=== PATIENT | male | born 1985 | race Caucasian/White ===

== ENCOUNTER 2021-10-21 13:16 | Emergency (ER) | payer SELFPAY ==
[~2021-10-21] VITALS: Ht 175.3 cm; Wt 90.7 kg
[2021-10-21] MEDS ORDERED: DEXAMETHASONE 5 MG/5 ML LIQUID UDC PO ONE (13:30)
[2021-10-21] MEDS ORDERED: DEXA6TAB6 PO (13:46)
[2021-10-21] MEDS ORDERED: ALBU8.5H8 INH (13:46)
[2021-10-21 14:02] VITALS: BP 125/76
[2021-10-21] MEDS ORDERED: DEXAMETHASONE 5 MG/5 ML LIQUID UDC ONE (14:07)
== END 2021-10-21 14:07 | disposition home or self-care (01) ==
LOC: ER 13:19
DX: U07.1 COVID-19 (principal); J12.82 Pneumonia due to coronavirus disease 2019
CPT/HCPCS: 99283; J8540; A4663